=== PATIENT | female | born 1975 | race African-American/Black ===

== ENCOUNTER 2019-03-27 18:58 | Emergency (ER) | payer SELFPAY ==
[2019-03-27 19:23] VITALS: BP 175/86; PULSE 68; TEMP 98.2; BMI 38.0
--- NOTE | 2019-03-27 20:40 | PDOC ---
History of Present Illness - General Chief Complaint: Pain Stated Complaint: SHOULDER PAIN Time Seen by Provider: 03/27/19 20:25 - History of Present Illness Initial Comments: 03/27/19 20:38 44-year-old female presents for evaluation of right-sided neck pain with right upper extremity radicular symptoms times about 2 weeks complains of numbness in her thumb. No systemic symptoms. Past History - Past Medical History Allergies/Adverse Reactions: Allergies Allergy/AdvReac Type Severity Reaction Status Date / Time No Known Allergies Allergy Verified 03/27/19 19:20 Home Medications: Ambulatory Orders Cyclobenzaprine HCl [Flexeril 10 mg] 10 mg PO HS PRN #10 tablet 03/27/19 Methylprednisolone [Medrol Dose Eliseo] 4 mg PO ASDIR #21 tablet 03/27/19 COPD: No - Psycho Social/Smoking Cessation Hx Smoking History: Never smoked Review of Systems - Review of Systems Constitutional: No: Fever Musculoskeletal: Yes: Neck Pain Neurological: Yes: See HPI, Numbness *Physical Exam - Vital Signs Last Vital Signs Temp Pulse Resp BP Pulse Ox 98.2 F 68 18 175/86 H 100 03/27/19 19:21 03/27/19 19:21 03/27/19 19:21 03/27/19 19:21 03/27/19 19:21 - Physical Exam Comments: 03/27/19 20:39 Cervical spine skin color temperature normal. Range of motion is slightly decreased. No midline tenderness. Moderate right-sided paracervical musculature spasm and tenderness. Positive Spurling maneuver on the right negative on the left. 5 out of 5 strength bilateral upper extremities without gross motor deficits. Mildly decreased sensation at the tip of the right thumb. Medical Decision Making - Medical Decision Making 03/27/19 20:39 Medrol Dosepak and Flexeril for cervical radicular symptoms follow-up with spine Discharge - Discharge Information Problems reviewed: Yes Clinical Impression/Diagnosis: Cervical radiculopathy Condition: Stable Disposition: HOME - Admission No - Additional Discharge Information Prescriptions: Cyclobenzaprine HCl [Flexeril 10 mg] 10 mg PO HS PRN #10 tablet PRN Reason: Muscle Spasms Methylprednisolone [Medrol Dose Eliseo] 4 mg PO ASDIR #21 tablet - Follow up/Referral Referrals: Ronnell Hernandez MD [Staff Physician] - - Patient Discharge Instructions Additional Instructions: Please start the Medrol Dosepak and take it as directed. Avoid anti- inflammatory such as Advil Motrin Aleve and ibuprofen. You may take Tylenol as directed for additional pain control. Please take the muscle relaxer 1 tablet before bedtime and will make you sleepy. Follow-up with neurosurgery in 1 to 2 days for further evaluation and treatment options. Follow-up without fail. Return to the emergency room should symptoms worsen. - Post Discharge Activity
== END 2019-03-27 20:44 | disposition home or self-care (01) ==
LOC: JERFT 18:58
DX: M54.12 Radiculopathy, cervical region (principal)
CPT/HCPCS: 99282-25